=== PATIENT | male | born 2000 | race Two or more races ===

== ENCOUNTER 2024-10-24 06:54 | Emergency (ER) | payer BC ==
[~2024-10-24] VITALS: Ht 170.2 cm; Wt 44.9 kg
[2024-10-24 07:26] VITALS: BP 134/81; PULSE 119; RESP 18; TEMP 99.9; O2SAT 98
[2024-10-24] MEDS: methylPREDNISolone SOD SUCC 125 MG/2 ML VL IV ONE (07:30)
[2024-10-24] MEDS: KETOROLAC TROMETH 30 MG/ML 1ML VIAL IV ONE (07:30)
[2024-10-24] MEDS: cefTRIAXone 1GM/50ML D5W 50 ML IV ONE (07:30)
--- NOTE | 2024-10-24 07:32 | ED.PDOC ---
Eye-HPI HPI Comments A 24 YEAR OLD MALE PRESENTS TO THE ED WITH COMPLAINT OF SORE THROAT. PATIENT STATES HE HAS BEEN EXPERIENCING A SORE THROAT THAT IS WORSE WHEN SWALLOWING FOR THE PAST 2 DAYS. PATIENT DENIES FEVER, CHILLS, SHORTNESS OF BREATH, CHEST PAIN, ABDOMINAL PAIN, NAUSEA, VOMITING, HEADACHE, OR OTHER COMPLAINTS. NO OTHER SYMPTOMS OR MODIFYING FACTORS AT THIS TIME. PATIENT IS ALERT, ORIENTED X 4, AND HAS STEADY GAIT. Chief Complaint: Sore Throat Time Seen by MD: 07:26 Reviewed Notes: Nurses Notes, Medications, Allergies Allergies: Coded Allergies: NO KNOWN ALLERGIES (Unverified , 10/24/24) Home Meds Active Scripts Lidocaine HCl (Mouth-Throat) (Lidocaine HCl Viscous) 2 % Geri, 5 ML MT TID, #100 ML Prov:CHRISTIANNE GEORGE 10/24/24 Azithromycin (ZITHROMAX TABLET) 250 Mg Tb, 250 MG PO DAILY, #6 TAB Prov:CHRISTIANNE GEORGE 10/24/24 Information Source: Patient Mode of Arrival: Ambulatory Timing: Days Duration: Since onset, Days Prehospital treatment: None Quality: Pain, Red Lids: Normal Conjunctiva: Normal Cornea: Normal Pupils: Normal EOM: Normal Fundus: Normal Slit lamp exam: Normal Anterior chamber: Normal Mouth Location: Pharynx Mouth: Normal ENT Ear Exam: Normal, Normal, Normal Nose: Normal Sinuses: Normal Oropharynx: Tonsillar hypertrophy, Red, Exudate Onset: Spontaneous Throat Exposed to: None History of: None Last Tetanus: Unknown Modifying factors: Nothing Associated signs and symptoms: Sore Throat Past Medical History PAST MEDICAL HISTORY: Denies Surgical History: Denies all surgeries Family History Family History: Reviewed,noncontributory to illness Social History Smoker: Non-Smoker Alcohol: Denies ETOH Use Drugs: Denies Drug Use Lives In: Home Constitutional: denies: chills, diaphoresis, fatigue, fever, malaise, sweats, weakness, others EENTM: reports: throat pain, throat swelling; denies: blurred vision, double vision, ear bleeding, ear discharge, ear drainage, ear pain, ear ringing, eye pain, eye redness, hearing loss, mouth pain, mouth swelling, nasal discharge, nose bleeding, nose congestion, nose pain, photophobia, tearing, voice changes, others Respiratory: denies: cough, hemoptysis, orthopnea, SOB at rest, shortness of breath, SOB with excertion, stridor, wheezing, others Cardiovascular: denies: chest pain, dizzy spells, diaphoresis, Dyspnea on exertion, edema, irregular heart beat, left arm pain, lightheadedness, palpitations, PND, syncope, others Gastrointestinal: denies: abdomen distended, abdominal pain, blood streaked bowels, constipated, diarrhea, dysphagia, difficulty swallowing, hematemesis, melena, nausea, poor appetite, poor fluid intake, rectal bleeding, rectal pain, vomiting, others Genitourinary: denies: burning, dysuria, flank pain, frequency, hematuria, incontinence, penile discharge, penile sore, pain, testicle pain, testicle swelling, urgency, others Neurological: denies: dizziness, fainting, headache, left sided numbness, left sided weakness, numbness, paresthesia, pre-existing deficit, right sided nu mbness, right sided weakness, seizure, speech problems, tingling, tremors, weakness, others Musculoskeletal: denies: back pain, gout, joint pain, joint swelling, muscle pain, muscle stiffness, neck pain, others Integumetry: denies: bruises, change in color, change in hair/nails, dryness, laceration, lesions, lumps, rash, wounds, others Allergic/Immunocompromised: denies: Difficulty Healing, Frequent Infections, Hives, Itching, others Hematologic/Lymphatic: denies: anemia, blood clots, easy bleeding, easy bruising, swollen glands, others Endocrine: denies: excessive hunger, excessive sweating, excessive thirst, excessive urination, flushing, intolerance to cold, intolerance to heat, unexplained weight gain, unexplained weight loss, others Psychiatric: denies: anxiety, bipolar disorder, depression, hopeless, panic disorder, schizophrenia, sleepless, suicidal, others All Other Systems: Reviewed and Negative Physical Exam General Appearance: No Apparent Distress, Normal HEENT: PERRL/EOMI, Pharyngeal Erythema (TONSILLAR SWELLING WITH EXUDATES. ), TMs Normal, Tonsillar Exudate Neck: Full Range of Motion, Non-Tender, Normal, Normal Inspection Respiratory: Chest Non-Tender, Lungs Clear, No Accessory Muscle Use, No Respiratory Distress, Normal Breath Sounds Cardiovascular: No Edema, No JVD, No Murmur, No Gallop, Normal Peripheral Pulses, Regular Rate/Rhythm Breast Exam: Deferred Gastrointestinal: No Organomegaly, Non Tender, No Pulsatile Mass, Normal Bowel Sounds, Soft Genitalia: Deferred Pelvic: Deferred Rectal: Deferred Extremities: No calf tenderness, Normal capillary refill, Normal inspection, Normal range of motion, Non-tender, No pedal edema Musculoskeletal : Apperance: Normal Neurologic: Alert, wire photo operator news II-XII nml as Tested, No Motor Deficits, Normal Affect, Normal Mood, No Sensory Deficits Cerebellar Function: Normal Reflexes: Normal Skin: Dry, Normal Color, Warm Peripheral Pulses: 2+ carotid (R), 2+ carotid (L) Lymphatic: No Adenopathy Was a procedure done? Was a procedure done?: No EENT DIFF Eye: N/A Ear: Otitis Media, Pharyngitis, Sinusitis Nose: N/A Mouth: N/A Sore Throat: Pharyngitis, Streptococcal, Viral Pharyngitis, URI X-Ray, Labs, Meds, VS Vital Signs Date Time Temp Pulse Resp B/P (MAP) Pulse Ox O2 Delivery O2 Flow Rate FiO2 10/24/24 07:26 99.9 119 18 134/81 (98) 98 99.9 10/24/24 07:26 119 18 98 Room Air 10/24/24 07:05 99.9 119 18 134/81 (98) 98 Lab Test 10/24/24 07:27 Range/Units Group A Streptococcus Rapid Negative Current Medications Medications (Trade) Dose Ordered Sig/Humphrey Route Start Time Stop Time Status Last Admin Sodium Chloride 500 ml @ 500 mls/hr Q1H ONCE IV 10/24/24 08:15 10/24/24 09:14 10/24/24 08:16 X-Ray, Labs, Meds, VS Comment EXTERNAL NOTES: NONE LABS ORDERED: STREP A RAPID REVIEWED AND INTERPRETED RESULTS: NEGATIVE IMAGING ORDERED: NONE INDEPENDENT HISTORIANS: NONE TREATMENTS ORDERED: ROCEPHIN 1 G IV, SOLU-MEDROL 125 MG IV, TORADOL 30MG IVP AND 0.9 NS 500ML PATIENT'S CASE AND RESULTS HAVE BEEN DISCUSSED WITH THE ED ATTENDING PHYSICIAN AND THEY AGREE WITH MY PLAN OF CARE. I HAVE INSTRUCTED THEM TO FOLLOW UP WITH THEIR PCP IN 1-2 DAYS. THE PATIENT FULLY UNDERSTANDS AND IS AWARE THEY NEED TO FOLLOW UP WITH THEIR PCP FOR FURTHER EVALUATION IF THEIR SYMPTOMS PERSIST. Time of 1ST Reevaluation: 09:00 Reevaluation 1ST: Improved Patient Education/Counseling: Diagnosis, Treatment, Need For Follow Up Family Education/Counseling: Diagnosis, Treatment, Need For Follow Up Medical Screening: No EMC Exist At This Time Departure 1 Departure Time of Disposition: 09:00 Impression: Primary Impression: Exudative tonsillitis Disposition: HOME / SELF CARE / HOMELESS Condition: Stable Additional Instructions: FOLLOW-UP WITH PCP IN 1 TO 2 DAYS. TAKE MEDICATIONS PRESCRIBED. RETURN TO ED FOR ANY NEW OR WORSENING SYMPTOMS. e-Prescriptions Lidocaine HCl (Mouth-Throat) (Lidocaine HCl Viscous) 2 % Geri 5 ML MT TID, #100 ML Prov: CHRISTIANNE GEORGE 10/24/24 Azithromycin (ZITHROMAX TABLET) 250 Mg Tb 250 MG PO DAILY, #6 TAB Prov: CHRISTIANNE GEORGE 10/24/24 Discharged With: Self Critical Care Note Critical Care Time?: No Stability Stability form required: No I personally scribed for CHRISTIANNE GEORGE ([email or web address]) on 10/24/24 at 07:32. Electronically submitted by Emanuel Schreiber ([email or web address]). I personally scribed for CHRISTIANNE GEORGE ([email or web address]) on 10/24/24 at 08:21. Electronically submitted by Emaunel Schreiber ([email or web address]). CHRISTIANNE GEORGE Oct 24, 2024 07:32
[2024-10-24] MEDS: SODIUM CHLORIDE 0.9% 500 ML IV ONE (08:16)
[2024-10-24 08:17] LABS: Rapid Strep A Screen-Throat Negative
[2024-10-24] MEDS ORDERED: LIDO2SOL26 MT (08:24)
[2024-10-24] MEDS ORDERED: AZIT-185 PO (08:24)
== END 2024-10-24 08:42 | disposition home or self-care (01) ==
LOC: ER 06:54
DX: J03.90 Acute tonsillitis, unspecified (principal); Z79.899 Other long term (current) drug therapy
CPT/HCPCS: 87070; 87880; 99283; J0696; J1885; J2919

== ENCOUNTER 2024-12-10 14:31 | Emergency (ER) | payer BC ==
[~2024-12-10] VITALS: Ht 170.2 cm; Wt 46.5 kg
[~2024-12-10 14:31] MED LIST: AZIT-185 PO; LIDO2SOL26 MT
[2024-12-10] MEDS: ONDANSETRON ODT 4 MG TAB PO ONE (15:15)
--- NOTE | 2024-12-10 15:16 | ED.PDOC ---
GI ASSESSMENT HPI Comments 24y M who presents to the ED for chief complaint of nausea and vomiting. Pt states he has been having nausea and vomiting with diarrhea for the past 2 days. Pt states he has been having multiple vomiting episodes since and states he has not been able to keep anything and came to the ED for further evaluation. Pt states he ate some noodles and since been having symptoms. Pt states he has had these symptoms in the past and states prior he was dx with stomach bug. Pt otherwise denies any other symptoms at this time. Chief Complaint: Nausea/Vomiting Time Seen by MD: 15:15 Primary Care Provider: NONE Reviewed Notes: Nurses Notes, Medications, Allergies Allergies: Coded Allergies: NO KNOWN ALLERGIES (Unverified , 10/24/24) Home Meds Active Scripts Ondansetron Odt 4MG Tab (ZOFRAN PO) 4 Mg Tb, 4 MG PO Q8HP PRN for 5 Days, #15 TAB ODT TAB-DISSOLVE IN MOUTH, THEN SWALLOW Prov:RADHA ALVARADO MD 12/10/24 Lidocaine HCl (Mouth-Throat) (Lidocaine HCl Viscous) 2 % Geri, 5 ML MT TID, #100 ML Prov:CHRISTIANNE GEORGE 10/24/24 Azithromycin (ZITHROMAX TABLET) 250 Mg Tb, 250 MG PO DAILY, #6 TAB Prov:CHRISTIANNE GEORGE 10/24/24 Information Source: Patient Mode of Arrival: Ambulatory Brought in by: self Timing: Days Duration: Since onset Prehospital treatment: None Quality: Aching Vomitus: Food Particles, Soft Stool: Gross Severity: Moderate Recent: Possible spoiled food Recent Hx of: None Modifying Factors: Food Associated sign and symptoms: Nausea, Vomiting, Diarrhea, Abdominal Pain Past Medical History PAST MEDICAL HISTORY: Denies Surgical History: Denies all surgeries Family History Family History: Reviewed,noncontributory to illness Social History Smoker: Non-Smoker Alcohol: Denies ETOH Use Drugs: Denies Drug Use Lives In: Home Constitutional: denies: chills, diaphoresis, fatigue, fever, malaise, sweats, weakness, others EENTM: denies: blurred vision, double vision, ear bleeding, ear discharge, ear drainage, ear pain, ear ringing, eye pain, eye redness, hearing loss, mouth pain, mouth swelling, nasal discharge, nose bleeding, nose congestion, nose pain, photophobia, tearing, throat pain, throat swelling, voice changes, others Respiratory: denies: cough, hemoptysis, orthopnea, SOB at rest, shortness of breath, SOB with excertion, stridor, wheezing, others Cardiovascular: denies: chest pain, dizzy spells, diaphoresis, Dyspnea on exertion, edema, irregular heart beat, left arm pain, lightheadedness, palpitations, PND, syncope, others Gastrointestinal: reports: diarrhea, vomiting; denies: abdomen distended, abdominal pain, blood streaked bowels, constipated, dysphagia, difficulty swallowing, hematemesis, melena, nausea, poor appetite, poor fluid intake, rectal bleeding, rectal pain, others Genitourinary: denies: burning, dysuria, flank pain, frequency, hematuria, incontinence, penile discharge, penile sore, pain, testicle pain, testicle swelling, urgency, others Neurological: denies: dizziness, fainting, headache, left sided numbness, left sided weakness, numbness, paresthesia, pre-existing deficit, right sided numbnes s, right sided weakness, seizure, speech problems, tingling, tremors, weakness, others Musculoskeletal: denies: back pain, gout, joint pain, joint swelling, muscle pain, muscle stiffness, neck pain, others Integumetry: denies: bruises, change in color, change in hair/nails, dryness, laceration, lesions, lumps, rash, wounds, others Allergic/Immunocompromised: denies: Difficulty Healing, Frequent Infections, Hives, Itching, others Hematologic/Lymphatic: denies: anemia, blood clots, easy bleeding, easy bruising, swollen glands, others Endocrine: denies: excessive hunger, excessive sweating, excessive thirst, excessive urination, flushing, intolerance to cold, intolerance to heat, unexplained weight gain, unexplained weight loss, others Psychiatric: denies: anxiety, bipolar disorder, depression, hopeless, panic disorder, schizophrenia, sleepless, suicidal, others All Other Systems: Reviewed and Negative Physical Exam General Appearance: No Apparent Distress, Thin HEENT: Normal ENT Inspection, Pharynx Normal, TMs Normal Neck: Full Range of Motion, Non-Tender, Normal, Normal Inspection Respiratory: Chest Non-Tender, Lungs Clear, No Accessory Muscle Use, No Respiratory Distress, Normal Breath Sounds Cardiovascular: No Edema, No JVD, No Murmur, No Gallop, Normal Peripheral Pulses, Regular Rate/Rhythm Breast Exam: Deferred Gastrointestinal: No Organomegaly, Non Tender, No Pulsatile Mass, Normal Bowel Sounds, Soft Genitalia: Deferred Pelvic: Deferred Rectal: Deferred Extremities: No calf tenderness, Normal capillary refill, Normal inspection, Normal range of motion, Non-tender, No pedal edema Musculoskeletal : Apperance: Normal Neurologic: Alert, rn transplant II-XII nml as Tested, No Motor Deficits, Normal Affect, Normal Mood, No Sensory Deficits Cerebellar Function: Normal Reflexes: Normal Skin: Dry, Normal Color, Warm Lymphatic: No Adenopathy Was a procedure done? Was a procedure done?: No GI differential Dx Differential Diagnosis: Gastritis/PUD, Gastroenteritis, Dehydration, Electrolyte Imbalance, Food Poisoning, Bacterial, Viral X-Ray, Labs, Meds, VS Vital Signs Date Time Temp Pulse Resp B/P (MAP) Pulse Ox O2 Delivery O2 Flow Rate FiO2 12/10/24 14:43 98.3 81 16 121/69 (86) 98 The patient was given Zofran The patient was being discharged with a diagnosis of gastroenteritis The patient will follow up with the primary care doctor The patient will return to the emergency department's the condition worsens Time of 1ST Reevaluation: 15:45 Reevaluation 1ST: Unchanged Patient Education/Counseling: Diagnosis, Treatment, Prognosis, Need For Follow Up Family Education/Counseling: No Family Present Departure 1 Departure Time of Disposition: 16:15 Impression: Primary Impression: Acute gastroenteritis Disposition: 01 HOME / SELF CARE / HOMELESS Condition: Fair e-Prescriptions Ondansetron Odt 4MG Tab (ZOFRAN PO) 4 Mg Tb 4 MG PO Q8HP PRN for 5 Days, #15 TAB ODT TAB-DISSOLVE IN MOUTH, THEN SWALLOW Prov: RADHA ALVARADO MD 12/10/24 Discharged With: Self Critical Care Note Critical Care Time?: No Stability Stability form required: No Heart Score Heart Score: Heart Score Response (Comments) Value History N/A 0 EKG N/A 0 Age N/A 0 Risk Factors N/A 0 Troponin N/A 0 Total 0 I personally scribed for RADHA ALVARADO MD ([email or web address]) on 12/10/24 at 15:16. Electronically submitted by Paulino RASHID). ARDHA ALVARADO MD Dec 10, 2024 15:16
[2024-12-10] MEDS ORDERED: ZOFR4T PO (16:14)
[2024-12-10 16:36] VITALS: BP 120/82; PULSE 75; RESP 18; O2SAT 98
== END 2024-12-10 16:42 | disposition home or self-care (01) ==
LOC: ER 14:37
DX: K52.9 Noninfective gastroenteritis and colitis, unspecified (principal); Z79.899 Other long term (current) drug therapy
CPT/HCPCS: 99283; Q0162

== ENCOUNTER 2025-06-27 07:24 | Inpatient (IN) | payer BC ==
[~2025-06-27] VITALS: Ht 170.2 cm; Wt 45.8 kg
[~2025-06-27 07:24] MED LIST changes: +ZOFR4T PO
--- NOTE | 2025-06-27 07:43 | ED.PDOC ---
GI ASSESSMENT HPI Comments 25 y/o M, presents to the ED for CC of nausea/vomiting. Patient states, he has been experiencing nausea/vomiting onset, 0200 this morning (06/27/25). Patient reports, using marijuana x2days ago and is unsure if symptoms maybe related. Patient denies diarrhea, fever, chills, sweats, or fatigue. No other symptoms or modifying factors present at this time. Chief Complaint: Nausea/Vomiting Time Seen by MD: 07:38 Primary Care Provider: NONE Reviewed Notes: Nurses Notes, Medications, Allergies Allergies: Coded Allergies: NO KNOWN ALLERGIES (Unverified , 10/24/24) Home Meds Active Scripts Ondansetron Odt 4MG Tab (ZOFRAN PO) 4 Mg Tb, 4 MG PO Q8HP PRN for 5 Days, #15 TAB ODT TAB-DISSOLVE IN MOUTH, THEN SWALLOW Prov:RADHA ALVARADO MD 12/10/24 Lidocaine HCl (Mouth-Throat) (Lidocaine HCl Viscous) 2 % Geri, 5 ML MT TID, #100 ML Prov:CHRISTIANNE GEORGE 10/24/24 Azithromycin (ZITHROMAX TABLET) 250 Mg Tb, 250 MG PO DAILY, #6 TAB Prov:CHRISTIANNE GEORGE 10/24/24 Information Source: Patient Mode of Arrival: Ambulatory Timing: Hours Duration: Since onset Prehospital treatment: None Quality: None Vomitus: Watery Stool: Normal Severity: Moderate Recent: None Recent Hx of: None Pain Location: None Modifying Factors: Nothing Associated sign and symptoms: Nausea, Vomiting Past Medical History PAST MEDICAL HISTORY: Denies Surgical History: Denies all surgeries Family History Family History: Reviewed,noncontributory to illness Social History Smoker: Non-Smoker Alcohol: Denies ETOH Use Drugs: Denies Drug Use Lives In: Home Constitutional: denies: chills, diaphoresis, fatigue, fever, malaise, sweats, weakness, others EENTM: denies: blurred vision, double vision, ear bleeding, ear discharge, ear drainage, ear pain, ear ringing, eye pain, eye redness, hearing loss, mouth pain, mouth swelling, nasal discharge, nose bleeding, nose congestion, nose pain, photophobia, tearing, throat pain, throat swelling, voice changes, others Respiratory: denies: cough, hemoptysis, orthopnea, SOB at rest, shortness of breath, SOB with excertion, stridor, wheezing, others Cardiovascular: denies: chest pain, dizzy spells, diaphoresis, Dyspnea on exer tion, edema, irregular heart beat, left arm pain, lightheadedness, palpitations, PND, syncope, others Gastrointestinal: reports: nausea, vomiting; denies: abdomen distended, abdominal pain, blood streaked bowels, constipated, diarrhea, dysphagia, difficulty swallowing, hematemesis, melena, poor appetite, poor fluid intake, rectal bleeding, rectal pain, others Genitourinary: denies: burning, dysuria, flank pain, frequency, hematuria, incontinence, penile discharge, penile sore, pain, testicle pain, testicle swelling, urgency, others Neurological: denies: dizziness, fainting, headache, left sided numbness, left sided weakness, numbness, paresthesia, pre-existing deficit, right sided numbness, right sided weakness, seizure, speech problems, tingling, tremors, weakness, others Musculoskeletal: denies: back pain, gout, joint pain, joint swelling, muscle pain, muscle stiffness, neck pain, others Integumetry: denies: bruises, change in color, change in hair/nails, dryness, laceration, lesions, lumps, rash, wounds, others Allergic/Immunocompromised: denies: Difficulty Healing, Frequent Infections, Hives, Itching, others Hematologic/Lymphatic: denies: anemia, blood clots, easy bleeding, easy bruising, swollen glands, others Endocrine: denies: excessive hunger, excessive sweating, excessive thirst, excessive urination, flushing, intolerance to cold, intolerance to heat, unexplained weight gain, unexplained weight loss, others Psychiatric: denies: anxiety, bipolar disorder, depression, hopeless, panic disorder, schizophrenia, sleepless, suicidal, others All Other Systems: Reviewed and Negative Physical Exam General Appearance: Moderate Distress, Thin HEENT: Normal ENT Inspection, Pharynx Normal, TMs Normal Neck: Full Range of Motion, Non-Tender, Normal, Normal Inspection Respiratory: Chest Non-Tender, Lungs Clear, No Accessory Muscle Use, No Respiratory Distress, Normal Breath Sounds Cardiovascular: No Edema, No JVD, No Murmur, No Gallop, Normal Peripheral Pulses, Regular Rate/Rhythm Breast Exam: Deferred Gastrointestinal: No Organomegaly, Non Tender, No Pulsatile Mass, Normal Bowel Sounds, Soft Genitalia: Deferred Pelvic: Deferred Rectal: Deferred Extremities: No calf tenderness, Normal capillary refill, Normal inspection, Normal range of motion, Non-tender, No pedal edema Musculoskeletal : Apperance: Normal Neurologic: Alert, antique collector II-XII nml as Tested, No Motor Deficits, Normal Affect, Normal Mood, No Sensory Deficits Cerebellar Function: Normal Reflexes: Normal Skin: Dry, Normal Color, Warm Peripheral Pulses: 3+ Radial (R), 3+ Radial (L) Lymphatic: No Adenopathy Was a procedure done? Was a procedure done?: No GI differential Dx Differential Diagnosis: Constipation, Diverticular disease, Esophagitis, Gastritis/PUD, Gastroenteritis, Drug toxicity, Electrolyte Imbalance, Food Poisoning, Bacterial, Viral X-Ray, Labs, Meds, VS Vital Signs Date Time Temp Pulse Resp B/P (MAP) Pulse Ox O2 Delivery O2 Flow Rate FiO2 06/27/25 07:26 97.3 96 18 129/90 98 97.3 Lab Test 06/27/25 08:48 06/27/25 08:40 06/27/25 07:52 06/27/25 02:40 Range/Units Blood Gas Specimen Type Arterial Blood Gas Sample Site Right radial Blood Gas Patient Temperature 37.0 Arterial Blood Date Drawn [id number] Arterial Blood pH 7.183 *L 7.350-7.450 Arterial Blood Partial Pressure CO2 24.7 L 35.0-48.0 mmHg Arterial Blood Partial Pressure O2 91.5 83.0-108.0 mmHg Arterial Blood HCO3 9.1 L 21.0-28.0 mmol/L Arterial Blood Oxygen Saturation 95.2 94.0-98.0 % Arterial Blood Base Excess -17.3 L -2.0-3.0 mmol/L Arterial Blood Oxyhemoglobin 94.4 94.0-98.0 % Arterial Blood Carboxyhemoglobin 0.1 L 0.5-1.5 % Arterial Blood Methemoglobin 0.7 0.0-1.5 % Mike Test Yes Blood Gas Total Hemoglobin 17.20 13.5-17.5 g/dL Blood Gas Modality Room air FiO2 % 21.0 Blood Gas Critical Value Read Back yes Blood Gas Notified Whom Blood Gas Notified Time [id number] Blood Gas Notified By electronic warfare specialist r.presley Lactic Acid Level 10.4 *H 0.4-2.0 mmol/L Beta-Hydroxybutyric Acid 1.776 H < 0.4 mmol/L Plasma/Serum Blood Alcohol 5.9 7.8 <10 mg/dL White Blood Count 34.8 *H 4.4-10.8 10^3/uL Red Blood Count 5.43 4.5-5.90 10^6/uL Hemoglobin 16.5 13.5-17.5 g/dL Hematocrit 50.6 41.0-53.0 % Mean Corpuscular Volume 93.3 80.0-100.0 fL Mean Corpuscular Hemoglobin 30.4 28.0-32.0 pg Mean Corpuscular Hemoglobin Concent 32.6 32.0-36.0 g/dL Red Cell Distribution Width 13.4 11.8-14.3 % Platelet Count 365 140-450 10^3/uL Mean Platelet Volume 9.0 6.9-10.8 fL Neutrophils (%) (Auto) 37.0-80.0 % Lymphocytes (%) (Auto) 10.0-50.0 % Monocytes (%) (Auto) 0.0-12.0 % Basophils (%) (Auto) 0.0-2.0 % Neutrophils # (Auto) 1.6-8.6 10 ^3/uL Lymphocytes # (Auto) 0.4-5.4 10 ^3/uL Monocytes # (Auto) 0-1.3 10 ^3/uL Differential Total Cells Counted 100.0 100 Neutrophils % (Manual) 87 H 37.0-80.0 Band Neutrophils % (Manual) 0 Lymphocytes % (Manual) 9 L 10.0-50.0 Monocytes % (Manual) 4 0-12 Eosinophils % (Manual) 0 0-7 Basophils % (Manual) 0 0.0-2.0 Metamyelocytes % (manual) 0 Myelocytes % (Manual) 0 Promyelocytes % (Manual) 0 Blast Cells % (Manual) 0 Reactive Lymphocytes 0 Platelet Estimate Adequate Red Blood Cell Morphology Normal Sodium Level 142 136-145 mmol/L Potassium Level 4.4 3.5-5.1 mmol/L Chloride Level 109 H 98-107 mmol/L Carbon Dioxide Level < 10 *L 20-31 mmol/L Anion Gap 23.59630 H 5-15 Blood Urea Nitrogen 11 9-23 mg/dL Creatinine 1.21 0.700-1.30 mg/dL Glomerular Filtration Rate Calc 86 >90 mL/min BUN/Creatinine Ratio 9.1 L 10.0-20.0 Serum Glucose 45 *L 74-106 mg/dL Calcium Level 10.1 8.7-10.4 mg/dL Current Medications Medications (Trade) Dose Ordered Sig/Humphrey Route Start Time Stop Time Status Last Admin Sodium Chloride 1,000 ml @ 1,000 mls/hr Q1H ONCE IV 06/27/25 07:45 06/27/25 08:44 DC 06/27/25 09:34 Ceftriaxone Sodium 50 ml @ 100 mls/hr ONCE ONCE IV 06/27/25 08:30 06/27/25 08:59 DC 06/27/25 09:18 Metronidazole 100 ml @ 100 mls/hr ONCE ONCE IV 06/27/25 08:30 06/27/25 09:29 DC 06/27/25 09:34 Sodium Chloride 1,000 ml @ 1,000 mls/hr Q1H ONCE IV 06/27/25 08:30 06/27/25 09:29 DC 06/27/25 09:05 Sodium Chloride 1,000 ml @ 150 mls/hr Q6H40M ONCE IV 06/27/25 08:30 06/27/25 15:09 06/27/25 10:40 Dextrose 50 ml ONCE ONCE IV 06/27/25 08:45 06/27/25 08:46 DC 06/27/25 08:45 Patient alert. Came in because of nausea vomiting. Uses marijuana. Vitals stable. Answering questions. Ambulating. Establish intravenous access. Was given fluids. Was given Zofran. Counseled patient effects of using drugs for 15 minutes. WBC elevated. Possible sepsis. Was given Rocephin. Was given Flagyl. Explained to the patient. [address] [address] Ph: [phone] DIAGNOSTIC IMAGING Diagnostic Imaging Report : [id number] Signed PATIENT: ALIYAH DE ANDA ACCT: [id number] UNIT: [id number] : 2000 LOC: OVERFLOW ROOM / BED: [address] [place] [address] / AGE / SEX: 25 / M ADM STATUS: ADM IN SERVICE 8 ORDERING PHYSICIAN: CALEB SIERRA MD PROCEDURE(s): ABPL - CT AB PEL WO CON-NO ORAL OR IV REASON: appy ORDER NUMBER(s): [id number], ACCESSION NUMBER(s): [id number] CT CT AB PEL WO CON-NO ORAL OR IV INDICATION: appy EXAM DATE: 06/27/2025 08:48 AM COMPARISON: None RADIATION DOSE: CTDIvol: 4.99 mGy, DLP: 268.84 mGy*cm PROCEDURE: Helical CT images were obtained of the abdomen and pelvis without IV contrast Sagittal and coronal reconstructions are provided. ORAL CONTRAST: None. ADDITIONAL IMAGES / REFORMATS: None All CT scans at this medical facility are performed using dose modulation techniques as appropriate to a performed exam including the following: Automated exposure control was utilized; adjustment of the MA and/or KV according to patient size; and use of iterative reconstruction technique. FINDINGS: LUNG BASE: Normal. LIVER: Normal. GALLBLADDER AND BILIARY TREE: No calcified gallstones. Normal caliber wall. No intra- or extrahepatic biliary ductal dilation. PANCREAS: Normal. SPLEEN: Normal. BOWEL: Normal. Appendix is only partially visualized but appears normal. ADRENALS: Normal. KIDNEYS AND URETER: Normal. BLADDER: Normal. REPRODUCTIVE ORGANS: Normal. LYMPH NODES:No lymphadenopathy. PERITONEUM: No ascites or free air. No other fluid collection. VESSELS: Normal. RETROPERITONEUM: Normal. ABDOMINAL WALL: Normal. BONES: Normal. IMPRESSION: No acute intraabdominal abnormality. Appendix is only partially visualized but appears normal. ATED BY: JERONIMO CASTILLO MD DICTATED DATE/TIME: 06/27/251000 SIGNED BY: JERONIMO CASTILLO MD SIGNED DATE/TIME: 06/27/251000 CC: Time of 1ST Reevaluation: 08:12 Reevaluation 1ST: Unchanged Patient Education/Counseling: Diagnosis, Treatment Family Education/Counseling: No Family Present SEPSIS Sepsis Screen Date sepsis recognized/suspect: Jun 27, 2025 Time Sepsis recognized/suspect: 727 Recent Procedure: No On Antibiotic Therapy: No Respiratory Rate >20: No Heart Rate >90: Yes Temp<36 C (96.8 F) or >38.3 C: No SBP <90 or MAP <65 mmHG: No New Acute Mental Status Change: No Is the patient on CPAP, BIPAP,: No Physician Orders Drug Screen (06/27/25 07:48) Blood Culture (06/27/25 08:26) Sodium Chloride 0.9% (06/27/25 08:30) Ct Ab Pel Wo Con-No Oral Or Iv (06/27/25 08:29) Abg W/ Co-Ox (06/27/25 08:35) Vital Signs Date Time Temp Pulse Resp B/P (MAP) Pulse Ox O2 Delivery O2 Flow Rate FiO2 06/27/25 07:26 97.3 96 18 129/90 98 97.3 Laboratory Tests Test 06/27/25 07:52 06/27/25 08:40 White Blood Count 34.8 10^3/uL (4.4-10.8) *H Lactic Acid Level 10.4 mmol/L (0.4-2.0) *H Medications Medications Dose Ordered Sig/Humphrey Route Start Time Stop Time Status Last Admin Dose Admin Ceftriaxone Sodium 50 ml @ 100 mls/hr ONCE ONCE IV 06/27/25 08:30 06/27/25 08:59 DC 06/27/25 09:18 Dextrose 50 ml ONCE ONCE IV 06/27/25 08:45 06/27/25 08:46 DC 06/27/25 08:45 Metronidazole 100 ml @ 100 mls/hr ONCE ONCE IV 06/27/25 08:30 06/27/25 09:29 DC 06/27/25 09:34 Sodium Chloride 1,000 ml @ 150 mls/hr Q6H40M ONCE IV 06/27/25 08:30 06/27/25 15:09 06/27/25 10:40 Sodium Chloride 1,000 ml @ 1,000 mls/hr Q1H ONCE IV 06/27/25 07:45 06/27/25 08:44 DC 06/27/25 09:34 Sodium Chloride 1,000 ml @ 1,000 mls/hr Q1H ONCE IV 06/27/25 08:30 06/27/25 09:29 DC 06/27/25 09:05 Departure 1 Departure Time of Disposition: 07:48 Impression: Primary Impression: Sepsis, unspecified organism Qualified Codes: A41.9 - Sepsis, unspecified organism Additional Impressions: Acute gastroenteritis Cannabis-induced disorder Disposition: ADMITTED INPATIENT Admit to: Med Surg Condition: Guarded Critical Care Note Critical Care Time?: No Stability Stability form required: No Heart Score Heart Score: Heart Score Response (Comments) Value History N/A 0 EKG N/A 0 Age N/A 0 Risk Factors N/A 0 Troponin N/A 0 Total 0 I personally scribed for CALEB SIERRA MD ([email or web address]) on 06/27/25 at 07:43. Electronically submitted by Ciera Schaeffer ([email or web address]). I personally scribed for CALEB SIERRA MD ([email or web address]) on 06/27/25 at 11:26. Electronically submitted by Ciera Schaeffer ([email or web address]). CALEB SIERRA MD Jun 27, 2025 07:43
[2025-06-27 08:22] LABS: Hematocrit 50.6 % (41.0-53.0); Hemoglobin 16.5 g/dL (13.5-17.5); Mean Corpuscular Hemoglobin 30.4 pg (28.0-32.0); Mean Corpuscular Volume 93.3 fL (80.0-100.0)
[2025-06-27 08:25] LABS: Potassium 4.4 mmol/L (3.5-5.1); Sodium 142 mmol/L (136-145)
[2025-06-27 08:26] LABS: Anion Gap 23.00001 (5-15)
[2025-06-27 08:27] LABS: Calcium 10.1 mg/dL (8.7-10.4)
[2025-06-27 08:32] LABS: BUN/Creatinine Ratio 9.1 (10.0-20.0); Blood Urea Nitrogen 11 mg/dL (9-23)
[2025-06-27 08:33] LABS: Chloride 109 mmol/L (98-107)
[2025-06-27 08:34] LABS: Carbon Dioxide < 10 mmol/L (20-31); Glucose 45 mg/dL (74-106)
[2025-06-27] MEDS: DEXTROSE 50% SYRINGE 50 ML IV ONE (08:44)
[2025-06-27 08:45] VITALS: PULSE 95; RESP 16; O2SAT 99
[2025-06-27 08:45] LABS: Total Cells Counted 100.0 (100)
[2025-06-27] MEDS: DEXTROSE (50%) 50ML SYRG IV ONE (08:45)
[2025-06-27] MEDS ORDERED: DEXTROSE 10% 1,000 ML IV SCH (08:45)
[2025-06-27 08:46] LABS: RBC Morphology Normal
[2025-06-27 08:53] LABS: Base Excess -17.3 mmol/L (-2.0-3.0)
[2025-06-27] MEDS ORDERED: IPRATROPIUM BROM 0.5 MG/2.5ML INH SOL ONE (09:00)
[2025-06-27] MEDS ORDERED: LEVALBUTEROL HCL 1.25 MG/3 ML NEB ONE (09:00)
[2025-06-27] MEDS: SODIUM CHLORIDE 0.9% 1,000 ML IV ONE ×3 (09:05→10:40)
[2025-06-27] MEDS ORDERED: D5W/ SOD CHL 0.9%/KCL 20MEQ 1,000 ML IV SCH (09:15)
[2025-06-27] MEDS ORDERED: MORPHINE SULFATE INJ 2 MG/ml SYRG IV PRN (09:15)
[2025-06-27] MEDS ORDERED: NITROGLYCERIN 0.4 MG SL TAB SL PRN (09:15)
[2025-06-27] MEDS ORDERED: DOCUSATE SOD 100 MG CAP PO PRN (09:15)
[2025-06-27] MEDS ORDERED: DEXTROSE (50%) 50ML SYRG IV PRN (09:15)
--- NOTE | 2025-06-27 09:17 | DVHHP2 ---
History of Present Illness Reason for Visit: weakness n/v/d History of Present Illness 25-year-old male with a history of asthma and no prior surgeries presented with persistent vomiting and diarrhea following heavy alcohol consumption. He reports that he was out partying yesterday, drinking tequila until approximately 1:00 AM. This morning, upon awakening, he experienced intractable vomiting without blood and was unable to tolerate oral intake despite attempts with Gatorade and Powerade. He also reports diffuse abdominal pain and diarrhea. He denies hematemesis, hematochezia, melena, chest pain, or shortness of breath. He smoked marijuana two days prior to presentation. On arrival to the ED, vital signs showed tachycardia and metabolic derangements. Labs revealed WBC 34.8, chloride 109, CO? <10, anion gap 23, glucose decreased to 45, lactate elevated at 10.48, pH 7.183, bicarbonate 9.1, base deficit -17.3, hemoglobin 20.1, ethanol level 7.8. Renal function was normal. Findings are consistent with severe metabolic acidosis, lactic acidosis, leukocytosis, hypoglycemia, and possible sepsis. The patient received initial resuscitation in the ED. Given the severity of metabolic derangements and concern for sepsis, he will be admitted to [facility] for further workup and management. Past Medical History See HPI above Past Surgical History See HPI above Family History Reviewed, non-contributory to the management of this case. Past Social History Patient does drink last drink was this morning at 1:00 a.m. he was binge drinking he also smokes marijuana he stated last smoke was two days ago Review of Systems Constitutional: No: Fever, Chills, Sweats, Weakness, Malaise, Other Eyes: No: Pain, Vision change, Conjunctivae inflammation, Eyelid inflammation, Other, Redness ENT: No: Ear pain, Ear discharge, Nose pain, Nose discharge, Nose congestion, Mouth pain, Mouth swelling, Throat pain, Throat swelling, Other Respiratory: No: Cough, Dry, Shortness of breath, SOB with excertion, Wheezing, Hemoptysis, Pleuritic Pain, Sputum, Wheezing, Other Cardiovascular: No: Chest Pain, Palpitations, Orthopnea, Paroxysmal Noc. Dyspnea, Edema, Lt Headedness, Other Gastrointestinal: Nausea, Vomiting, Abdominal Pain, Diarrhea Genitourinary: No Dysuria, No Frequency, No Incontinence, No Hematuria, No Retention, No Other Musculoskeletal: No: other, neck pain, shoulder pain, arm pain, back pain, hand pain, leg pain, foot pain Skin: No: Rash, Lesions, Jaundice, Bruising, Other Neurological: Weakness; No: Numbness, Incoordination, Change in speech, Confusion, Seizures, Other Allergies: Coded Allergies: NO KNOWN ALLERGIES (Unverified , 10/24/24) Medications Current Medications Medications Dose Ordered Sig/Humphrey Route Start Time Stop Time Status Last Admin Dose Admin Dextrose 1,000 ml @ 100 mls/hr Q10H IV 06/27/25 08:45 Exam Vital Signs Vital Signs Date Time Temp Pulse Resp B/P (MAP) Pulse Ox O2 Delivery O2 Flow Rate FiO2 06/27/25 07:26 97.3 96 18 129/90 98 97.3 General Appearance: Alert, Oriented X3, Cooperative, No acute distress HEENT: Atraumatic, PERRLA, EOMI, Mucous membr. moist/pink Respiratory: Clear to auscultation, Normal air movement Cardiovascular: Regular rate, Normal S1, Normal S2, No murmurs Abdominal: Normal bowel sounds, Soft, No tenderness, No hepatospenomegaly, No masses Extremities: No clubbing, No cyanosis, No edema, Normal pulses, No tendern ess/swelling Skin: No rashes, No breakdown, No significant lesion Neuro: Normal gait, Normal speech, Strength at 5/5 X4 ext, Normal tone, Sensation intact, Cranial nerves 3-12 NL Psych/Mental Status: Mental status NL, Mood NL Labs/Xrays CT scan of the abdomen pelvis unremarkable I reviewed labs, imaging CT scan abdomen pelvis, EKG and all diagnostic studies on this patient from ED records and the medical chart Labs Test 06/27/25 08:48 06/27/25 08:40 06/27/25 07:52 Range/Units Blood Gas Specimen Type Arterial Blood Gas Sample Site Right radial Blood Gas Patient Temperature 37.0 Arterial Blood Date Drawn [id number] Arterial Blood pH 7.183 *L 7.350-7.450 Arterial Blood Partial Pressure CO2 24.7 L 35.0-48.0 mmHg Arterial Blood Partial Pressure O2 91.5 83.0-108.0 mmHg Arterial Blood HCO3 9.1 L 21.0-28.0 mmol/L Arterial Blood Oxygen Saturation 95.2 94.0-98.0 % Arterial Blood Base Excess -17.3 L -2.0-3.0 mmol/L Arterial Blood Oxyhemoglobin 94.4 94.0-98.0 % Arterial Blood Carboxyhemoglobin 0.1 L 0.5-1.5 % Arterial Blood Methemoglobin 0.7 0.0-1.5 % Mike Test Yes Blood Gas Total Hemoglobin 17.20 13.5-17.5 g/dL Blood Gas Modality Room air FiO2 % 21.0 Blood Gas Critical Value Read Back yes Blood Gas Notified Whom Blood Gas Notified Time [id number] Blood Gas Notified By principal architect ulises White Blood Count 34.8 *H 4.4-10.8 10^3/uL Red Blood Count 5.43 4.5-5.90 10^6/uL Hemoglobin 16.5 13.5-17.5 g/dL Hematocrit 50.6 41.0-53.0 % Mean Corpuscular Volume 93.3 80.0-100.0 fL Mean Corpuscular Hemoglobin 30.4 28.0-32.0 pg Mean Corpuscular Hemoglobin Concent 32.6 32.0-36.0 g/dL Red Cell Distribution Width 13.4 11.8-14.3 % Platelet Count 365 140-450 10^3/uL Mean Platelet Volume 9.0 6.9-10.8 fL Neutrophils (%) (Auto) 37.0-80.0 % Lymphocytes (%) (Auto) 10.0-50.0 % Monocytes (%) (Auto) 0.0-12.0 % Basophils (%) (Auto) 0.0-2.0 % Neutrophils # (Auto) 1.6-8.6 10 ^3/uL Lymphocytes # (Auto) 0.4-5.4 10 ^3/uL Monocytes # (Auto) 0-1.3 10 ^3/uL Differential Total Cells Counted 100.0 100 Neutrophils % (Manual) 87 H 37.0-80.0 Band Neutrophils % (Manual) 0 Lymphocytes % (Manual) 9 L 10.0-50.0 Monocytes % (Manual) 4 0-12 Eosinophils % (Manual) 0 0-7 Basophils % (Manual) 0 0.0-2.0 Metamyelocytes % (manual) 0 Myelocytes % (Manual) 0 Promyelocytes % (Manual) 0 Blast Cells % (Manual) 0 Reactive Lymphocytes 0 Platelet Estimate Adequate Red Blood Cell Morphology Normal Sodium Level 142 136-145 mmol/L Potassium Level 4.4 3.5-5.1 mmol/L Chloride Level 109 H 98-107 mmol/L Carbon Dioxide Level < 10 *L 20-31 mmol/L Anion Gap 23.27341 H 5-15 Blood Urea Nitrogen 11 9-23 mg/dL Creatinine 1.21 0.700-1.30 mg/dL Glomerular Filtration Rate Calc 86 >90 mL/min BUN/Creatinine Ratio 9.1 L 10.0-20.0 Serum Glucose 45 *L 74-106 mg/dL Calcium Level 10.1 8.7-10.4 mg/dL SEPSIS Sepsis Screen Date sepsis recognized/suspect: Jun 27, 2025 Time Sepsis recognized/suspect: 727 Recent Procedure: No On Antibiotic Therapy: No Respiratory Rate >20: No Heart Rate >90: Yes Temp<36 C (96.8 F) or >38.3 C: No SBP <90 or MAP <65 mmHG: No New Acute Mental Status Change: No Is the patient on CPAP, BIPAP,: No Physician Orders Drug Screen (06/27/25 07:48) Blood Culture (06/27/25 08:26) Lactic Acid W/ Reflex Order (06/27/25 08:26) Metronidazole 500mg/100ml (Flagyl 500mg/ (06/27/25 08:30) Sodium Chloride 0.9% (06/27/25 08:30) Sodium Chloride 0.9% (06/27/25 08:30) Ct Ab Pel Wo Con-No Oral Or Iv (06/27/25 08:29) Beta-Hydroxybutyrate (06/27/25 08:35) Abg W/ Co-Ox (06/27/25 08:35) Dextrose 10% (06/27/25 08:45) Basic Metabolic Panel (06/27/25 12:00) Basic Metabolic Panel (06/27/25 18:00) Basic Metabolic Panel (06/28/25 00:00) Basic Metabolic Panel (06/28/25 06:00) Basic Metabolic Panel (06/28/25 12:00) Basic Metabolic Panel (06/28/25 18:00) Glucose Blood (Accu-Chek Comfort Curve T (06/27/25 10:00) Agressive Insulin Ss (06/27/25 12:00) Dextrose 50% Syringe (06/27/25:15) Urine Ethanol (06/27/25 09:09) Etoh Withdrawal Assessment (06/27/25:09) Admit (06/27/25 09:09) Allergies (06/27/25:09) Code Status (06/27/25:) Ondansetron Hcl (Zofran) (06/27/25:15) Docusate Sodium Capsule (Colace Capsule) (06/27/25:15) Enoxaparin Sodium (Lovenox) (06/27/25 10:00) Complete Blood Count (06/28/25 04:00) Comprehensive Metabolic Panel (06/28/25 04:00) Condition: Fair (06/27/25:09) Clear Liq Diet (06/27/25 Breakfast) BRP (06/27/25:09) Morphine Sulfate Injection (06/27/25:15) Sequential Compression Device (06/27/25 ) Nitroglycerin Sublingual (Ntrostat Subli (06/27/25:15) Stat Ekg For Chest Pain (06/27/25:) Notify Of Changes From Base (06/27/25:) Sweat Band Separator For 24 Hours (06/27/25 09:09) Emergency Dysrhythmia Protocol (06/27/25:09) Rhythm Strips Once Every Shift (06/27/25:09) Oxygen By Nasal Cannula (06/27/25:09) Zosyn Extended Infusion (06/27/25 12:00) Zosyn Extended Infusion (06/27/25:15) D5 Ns W Potassium 20meq (06/27/25:15) Cab Driver (06/27/25:09) Daily Weight (06/27/25:) Vs Q1hr And Prn (06/27/25:09) Oxygen Per Standardized Proced (06/27/25:) Record Ekg (06/27/25:) Vital Signs Date Time Temp Pulse Resp B/P (MAP) Pulse Ox O2 Delivery O2 Flow Rate FiO2 06/27/25 07:26 97.3 96 18 129/90 98 97.3 Laboratory Tests Test 06/27/25 07:52 06/27/25 08:40 White Blood Count 34.8 10^3/uL (4.4-10.8) *H Lactic Acid Level Pending Medications Medications Dose Ordered Sig/Humphrey Route Start Time Stop Time Status Last Admin Dose Admin Dextrose 50 ml ONCE ONCE IV 06/27/25 08:45 06/27/25 08:46 DC 06/27/25 08:45 50 ML Sodium Chloride 1,000 ml @ 1,000 mls/hr Q1H ONCE IV 06/27/25 08:30 06/27/25 09:29 06/27/25 09:05 1,000 MLS/HR Assessment/Plan Assessment/Plan Severe metabolic acidosis with lactic acidosis, leukocytosis, and hypoglycemia in the setting of acute alcohol use, dehydration, and possible sepsis. ASSESSMENT & PLAN acute severe sepsis Severe high anion gap metabolic acidosis with lactic acidosis severe acidemia Correct underlying cause (possible sepsis, dehydration) Admit to [facility] for close monitoring Continue IV fluid resuscitation with isotonic fluids Monitor serial lactate and VBG ordered blood cultures x2 ordered ua and culture fu results ordered vanco and zosyn for now acute severe Leukocytosis possible sepsis vs severe dehydration Obtain blood cultures 2 prior to antibiotics Empiric broad-spectrum IV antibiotics pending cultures vanco and zosyn for now Monitor vital signs, urine output, and mental status acute Hypoglycemia/possible alcohol-induced hypoglycemia glucose 45 now 205 IV dextrose bolus given, if continued downtrend will start D5-containing maintenance fluids for now cont ns 120ml/hr Frequent [id number] glucose checks for now q2h for now acute Alcohol use and binge drinking Monitor for alcohol withdrawal initiate CIWA protocol if indicated ordered banana bag current etoh level 6.8 Acute gastroenteritis vs. alcohol-induced gastritis Symptomatic management with antiemetics (ondansetron PRN) Clear liquid diet, advance as tolerated after nausea/vomiting improve Monitor stool output and hydration status ordered protonix for now Asthma stable Continue home inhaler regimen as needed Monitor for respiratory distress during admission acute Mild hyperchloremia cont iv hydration Low-level ethanol in blood enc abstinence CHRONIC PROBLEM LIST Asthma Alcohol use FEN / PPx Fluids: IV isotonic fluids, consider D5-containing solution for hypoglycemia Electrolytes: Monitor and replete K, Mg, and phosphate Nutrition: clr liquid, then advance diet DVT Prophylaxis: SCDs initially, GI Prophylaxis: PPI if ongoing vomiting and alcohol gastritis suspected Disposition: Admit to [facility] for management of severe metabolic acidosis, hypoglycemia, and possible sepsis. Monitor closely for hemodynamic instability and neurologic status changes. Plan discussed with: Patient My Orders Orders - IRVING PARKER DNP Procedure Category Date Status Time Basic Metabolic Panel LAB 06/27/25 Verified 12:00 Basic Metabolic Panel LAB 06/27/25 Verified 18:00 Basic Metabolic Panel LAB 06/28/25 Verified 00:00 Basic Metabolic Panel LAB 06/28/25 Verified 06:00 Basic Metabolic Panel LAB 06/28/25 Verified 12:00 Basic Metabolic Panel LAB 06/28/25 Verified 18:00 Glucose Blood PHA 06/27/25 Verified (Accu-Chek Comfort 10:00 Agressive Insulin Ss PHA 06/27/25 Verified 12:00 Dextrose 50% Syringe PHA 06/27/25 Verified 09:15 Urine Ethanol LAB 06/27/25 Verified 09:09 Etoh Withdrawal [facility] 06/27/25 Verified Assessment 09:09 Admit ADMIT 06/27/25 Verified 09:09 Allergies [facility] 06/27/25 Verified 09:09 Code Status CODE 06/27/25 Verified 09:09 Ondansetron Hcl PHA 06/27/25 Verified (Zofran) 09:15 Docusate Sodium PHA 06/27/25 Verified Capsule (Colace 09:15 Enoxaparin Sodium PHA 06/27/25 Verified (Lovenox) 10:00 Complete Blood Count LAB 06/28/25 Verified 04:00 Comprehensive LAB 06/28/25 Verified Metabolic Panel 04:00 Condition: Fair [facility]ANE 06/27/25 Verified 09:09 Clear Liq Diet DIET 06/27/25 Verified Breakfast BRP [facility] 06/27/25 Verified 09:09 Morphine Sulfate PHA 06/27/25 Verified Injection 09:15 Sequential [facility] 06/27/25 Verified Compression Device Nitroglycerin [facility] 06/27/25 Verified Sublingual (Ntrostat 09:15 Stat Ekg For Chest [facility] 06/27/25 Verified Pain 09:09 Notify Of Changes [facility] 06/27/25 Verified From Base 09:09 Sweat Band Separator For [facility] 06/27/25 Verified 24 Hours 09:09 Emergency Dysrhythmia [facility] 06/27/25 Verified Protocol 09:09 Rhythm Strips Once [facility] 06/27/25 Verified Every Shift 09:09 Oxygen By Nasal RT 06/27/25 Verified Cannula 09:09 Zosyn Extended [facility] 06/27/25 Verified Infusion 12:00 Zosyn Extended [facility] 06/27/25 Verified Infusion 09:15 D5 Ns W Potassium [facility] 06/27/25 Verified 20meq 09:15 Cab Driver [facility] 06/27/25 Verified 09:09 Daily Weight [facility] 06/27/25 Verified 09:09 Vs Q1hr And Prn [facility] 06/27/25 Verified 09:09 Oxygen Per [facility] 06/27/25 Verified Standardized Proced 09:09 Record Ekg [facility] 06/27/25 Verified 09:09 Date of Service: Jun 27, 2025 Billing Provider: IRVING PARKER DNP Common Visit Codes: [id number] INP/OBS CARE (HIGH), [id number] CARE 30- 74 MIN (Total critical care time: Approximately 45 minutes This critical care time included obtaining a history; examining the patient; pulse oximetry; ordering and review of studies; arranging urgent treatment with development of a management plan; evaluation of patient's response to treatment; frequent reassessment; and, discussions with other providers.) IRVING PARKER DNP Jun 27, 2025 09:17
[2025-06-27] MEDS: cefTRIAXone 1GM/50ML D5W 50 ML IV ONE (09:18)
[2025-06-27] MEDS: MORPHINE SULFATE 4 MG/ML SYR/VIAL IV ONE (09:26)
[2025-06-27 09:32] LABS: Lactic Acid w/Reflex 10.4 mmol/L (0.4-2.0)
[2025-06-27] MEDS: ONDANSETRON HCL 4 MG/2 ML VIAL IV ONE (09:51)
--- NOTE | 2025-06-27 10:04 | DVH ---
CT CT AB PEL WO CON-NO ORAL OR IV INDICATION: appy EXAM DATE: 06/27/2025 08:48 AM COMPARISON: None RADIATION DOSE: CTDIvol: 4.99 mGy, DLP: 268.84 mGy*cm PROCEDURE: Helical CT images were obtained of the abdomen and pelvis without IV contrast Sagittal and coronal reconstructions are provided. ORAL CONTRAST: None. ADDITIONAL IMAGES / REFORMATS: None All C T scans at this medical facility are performed using dose modulation techniques as appropriate to a p erformed exam including the following: Automated exposure control was utilized; adjustment of the MA and/or KV according to patient size; and use of iterative reconstruction technique. FINDINGS: LUNG BASE: Normal. LIVER: Normal. GALLBLADDER AND BILIARY TREE: No calcified gallstones. Normal caliber wall. No intra- or extrahepatic biliary ductal dilation. PANCREAS: Normal. SPLEEN: Normal. BOWEL: Normal. Appendix is only partially visualized but appears normal. ADRENALS: Normal. KIDNEYS AND URETER: Normal. BLADDER: Normal. REPRODUCTIVE ORGANS: Normal. LYMPH NODES:No lymphadenopathy. PERITONEUM: No ascites or free air. No other fluid collection. VESSELS: Normal. RETROPERITONEUM: Normal. ABDOMINAL WALL: Normal. BONES: Normal. IMPRESSION: No acute intraabdominal abnormality. Appendix is only partially visualized but appears normal.
[2025-06-27] MEDS: ACCU-CHEK COMFORT CURVE STRIP VI SCH (10:18)
[2025-06-27] MEDS: SODIUM CHLORIDE 0.9% 2,000 ML IV ONE (10:40)
[2025-06-27] MEDS: PIPERACILLIN-TAZOB 3.375GM 100 ML IV ONE (10:41)
[2025-06-27] MEDS: ENOXAPARIN SOD 40 MG/0.4 ML SYRINGE SC SCH (10:41)
[2025-06-27] MEDS ORDERED: VANCOMYCIN PER PHARMACY 0 MG IV SCH (10:45)
[2025-06-27 11:06] LABS: Base Excess -13.1 mmol/L (-2.0-3.0)
[2025-06-27] MEDS: VANCOMYCIN 1GM/250ML KIT 250 ML IV ONE (11:13)
[2025-06-27] MEDS: InsuLIN REG 1unit/0.01ml Soln (100units/ml) SC SCH (12:00)
[2025-06-27 12:47] LABS: Lactic Acid w/Reflex 3.0 mmol/L (0.4-2.0)
[2025-06-27] MEDS: ONDANSETRON HCL 4 MG/2 ML VIAL IV PRN (12:55)
[2025-06-27 13:22] LABS: Amphetamine Screen, Urine Neg (NEGATIVE); Barbiturate Scree,Urine Neg (NEGATIVE); Benzodiazephine Screen, Urine Neg (NEGATIVE); Cannabinoid Screen, Urine Pos (NEGATIVE); Cocaine Screen, Urine Pos (NEGATIVE); Opiate Scree,Urine Neg (NEGATIVE); Phencyclidine Screen, Urine Neg (NEGATIVE)
[2025-06-27 13:35] LABS: Urine Protein, UAD Trace (Negative)
[2025-06-27 14:10] LABS: Potassium 4.1 mmol/L (3.5-5.1); Sodium 142 mmol/L (136-145)
[2025-06-27 14:11] LABS: Anion Gap 12 (5-15)
[2025-06-27 14:16] LABS: Blood Urea Nitrogen 10 mg/dL (9-23); Calcium 7.5 mg/dL (8.7-10.4); Carbon Dioxide 16 mmol/L (20-31); Chloride 114 mmol/L (98-107); Glucose 137 mg/dL (74-106)
[2025-06-27 14:21] LABS: BUN/Creatinine Ratio 12.2 (10.0-20.0)
[2025-06-27] MEDS: PIPERACILLIN-TAZOB 3.375GM 100 ML IV SCH (15:04)
[2025-06-27] MEDS ORDERED: VANCOMYCIN 750MG KIT 100 ML IV SCH (16:30)
[2025-06-27 18:19] LABS: Potassium 3.9 mmol/L (3.5-5.1); Sodium 142 mmol/L (136-145)
[2025-06-27 18:20] LABS: Anion Gap 12 (5-15)
[2025-06-27 18:25] LABS: BUN/Creatinine Ratio 9.6 (10.0-20.0); Glucose 79 mg/dL (74-106)
[2025-06-27 18:30] LABS: Blood Urea Nitrogen 8 mg/dL (9-23); Calcium 8.0 mg/dL (8.7-10.4); Carbon Dioxide 17 mmol/L (20-31); Chloride 113 mmol/L (98-107)
[2025-06-27 19:28] VITALS: PULSE 109; RESP 20; O2SAT 97
[2025-06-27] MEDS: VANCOMYCIN 750MG KIT 100 ML IV SCH (20:32)
[2025-06-27] MEDS: ACETAMINOPHEN 325 MG TAB PO ONE (22:09)
[2025-06-28] VITALS (21 sets, daily range): BP systolic 95–124; BP diastolic 54–73; PULSE 72–101; RESP 11–28; TEMP 98.3–99.3; O2SAT 95–99
[2025-06-28 05:55] LABS: Hematocrit 38.3 % (41.0-53.0); Hemoglobin 13.4 g/dL (13.5-17.5); Mean Corpuscular Hemoglobin 30.9 pg (28.0-32.0); Mean Corpuscular Volume 88.1 fL (80.0-100.0); Nucleated Red Blood Cells % 0.1 %
[2025-06-28 06:23] LABS: Alanine Aminotransferase 26 U/L (7-40); Albumin 4.2 g/dL (3.2-4.8); Alkaline Phosphatase 63 U/L (46-116); Anion Gap 13 (5-15); BUN/Creatinine Ratio 8.6 (10.0-20.0); Calcium 8.9 mg/dL (8.7-10.4); Carbon Dioxide 21 mmol/L (20-31); Glucose 86 mg/dL (74-106); Sodium 144 mmol/L (136-145); Total Protein 6.1 g/dL (5.7-8.2)
[2025-06-28 06:24] LABS: Bilirubin, Total 1.2 mg/dL (0.2-1.0)
[2025-06-28 06:33] LABS: Blood Urea Nitrogen 7 mg/dL (9-23); Chloride 110 mmol/L (98-107); Potassium 3.4 mmol/L (3.5-5.1)
[2025-06-28] MEDS: SOD CHL 0.45% WITH 20MEQ KCL 1,000 ML IV SCH (12:45)
[2025-06-28 12:55] LABS: Anion Gap 10 (5-15); Carbon Dioxide 23 mmol/L (20-31); Potassium 3.5 mmol/L (3.5-5.1); Sodium 142 mmol/L (136-145)
[2025-06-28 13:01] LABS: BUN/Creatinine Ratio 11.1 (10.0-20.0); Blood Urea Nitrogen 8 mg/dL (9-23); Calcium 8.5 mg/dL (8.7-10.4); Chloride 109 mmol/L (98-107); Glucose 81 mg/dL (74-106)
[2025-06-28] MEDS: POTASSIUM CHL 20 Meq TABLET PO ONE (13:49)
--- NOTE | 2025-06-28 14:49 | DVHPN2 ---
Subjective Patient denies any symptoms. Reviewed: Care Plan, H&P, Labs Changes from previous H/P or p: No Changes Eyes: No Pain, No Vision change, No Conjunctivae inflammation, No Eyelid inflammation, No Other, No Redness ENT: No Ear pain, No Ear discharge, No Nose pain, No Nose discharge, No Nose congestion, No Mouth pain, No Mouth swelling, No Throat pain, No Throat swelling, No Other Cardiovascular: No Chest Pain, No Palpitations, No Orthopnea, No Paroxysmal Noc. Dyspnea, No Edema, No Lt Headedness, No Other Respiratory: No Cough, No Dry, No Shortness of breath, No SOB with excertion, No Wheezing, No Hemoptysis, No Pleuritic Pain, No Sputum, No Other Gastrointestinal: Nausea, Vomiting, Abdominal Pain, Diarrhea Genitourinary: No Dysuria, No Frequency, No Incontinence, No Hematuria, No Retention, No Other Musculoskeletal: No other, No neck pain, No shoulder pain, No arm pain, No back pain, No hand pain, No leg pain, No foot pain Skin: No Rash, No Lesions, No Jaundice, No Bruising, No Other Objective Vitals Vital Signs Date Time Temp Pulse Resp B/P (MAP) Pulse Ox O2 Delivery O2 Flow Rate FiO2 06/28/25 12:00 80 06/28/25 08:00 23 Room Air* 0 21 06/28/25 08:00 98.8 99/61 (74) 99 98.8 Intake/Output Intake and Output 06/28/25 07:00 Intake Total 4425 ml Output Total 1075 ml Balance 3350 ml Intake IV Total 4425 ml Output Urine Total 1075 ml # Bowel Movements 1 General Appearance: Alert, Oriented X3, Cooperative, No acute distress HEENT: Atraumatic, PERRLA Cardiovascular: Normal S1, Normal S2 Abdomen: Normal bowel sounds, Soft, No tenderness Musculoskeletal: Normal sensory function, Normal motor function Skin: Dry, Intact Psych/Mental Status: Mental status NL, Mood NL Medications Current Medications Medications Dose Ordered Sig/Humphrey Route Start Time Stop Time Status Last Admin Dose Admin Ondansetron HCl 4 mg Q4HP PRN IV 06/27/25 09:15 06/27/25 12:55 4 MG Docusate Sodium 100 mg BIDPRN PRN PO 06/27/25 09:15 Enoxaparin Sodium 40 mg DAILY SC 06/27/25 10:00 06/28/25 10:50 40 MG Morphine Sulfate 2 mg Q4HPRN PRN IV 06/27/25 09:15 Nitroglycerin 0.4 mg Q5MINP PRN SL 06/27/25 09:15 Piperacillin Sod/ Tazobactam Sod 100 ml @ 25 mls/hr Q8HR IV 06/27/25 14:00 06/28/25 06:10 25 MLS/HR Potassium Chloride/Sodium Chloride 1,000 ml @ 75 mls/hr [id number] IV 06/28/25 12:45 06/28/25 12:45 75 MLS/HR Laboratory Results Laboratory Tests 06/28/25 05:31 06/28/25 12:07 Chemistry Test 06/27/25 18:01 06/28/25 05:31 06/28/25 12:07 Calcium Level 8.0 mg/dL (8.7-10.4) L 8.9 mg/dL (8.7-10.4) 8.5 mg/dL (8.7-10.4) L Albumin 4.2 g/dL (3.2-4.8) Total Protein 6.1 g/dL (5.7-8.2) LFT Test 06/28/25 05:31 Alanine Aminotransferase (ALT) 26 U/L (7-40) Alkaline Phosphatase 63 U/L (46-116) Aspartate Amino Transferase (AST) 29 U/L (13-40) Total Bilirubin 1.2 mg/dL (0.2-1.0) H Urinalysis Test 06/27/25 12:00 Urine Color Light-yellow (Yellow) Urine Clarity Clear (Clear) Urine pH 5.0 (5.0-9.0) Urine Specific [place] 1.018 (1.001-1.035) Urine Protein Trace (Negative) H Urine Ketones 3+ (Negative) H Urine Blood Trace /uL (Negative) H Urine Nitrite Negative (Negative) Urine Bilirubin Negative (Negative) Urine Urobilinogen Normal mg/dL (Negative) Urine Leukocyte Esterase Negative /uL (Negative) Urine Glucose 4+ mg/dL (Normal) H Microbiology Microbiology Date/Time Source Procedure Growth Status 06/27/25 08:40 Blood Blood Culture - Preliminary NO GROWTH AFTER 24 HOURS OF INCUBATION. Resulted Labs and/or images reviewed: Labs reviewed by me, Image(s) reviewed by me Assessment/Plan Assessment/Plan Impression: -leukocytosis, rule out sepsis -polysubstance abuse -toxic metabolic encephalopathy -cachexia Plan: -continue IV hydration -potassium replacement -continue empiric antibiotic therapy -transfer to Medical/Surgical unit -repeat labs in a.m. Total time spent with patient discussing and formulating plan of care: 35 minutes. This medical document was created using an electronic medical record system with interspire[employer] dictation system. Although this document has been carefully reviewed, there may still be some phonetic and typographical errors. These areas are purely typographical due to imperfections of the software programs, and do not reflect any compromise in the patient's medical care. Plan discussed with: Patient, Other (RN) My Orders Orders - SAMI LEWIS NP Procedure Category Date Status Time Sod Chl 0.45% With PHA 06/28/25 In Process 20meq Kcl 12:45 Transfer Orders XFER 06/28/25 Verified 14:38 Full Liq Diet DIET 06/28/25 Verified Dinner Date of Service: Jun 28, 2025 Billing Provider: SAMI LEWIS NP Common Visit Codes: [id number] INP/OBS CARE(HIGH) SAMI LEWIS NP Jun 28, 2025 14:49
[2025-06-28] MEDS: PIPERACILLIN-TAZOB 3.375GM 100 ML IV ONE (16:13)
[2025-06-29] VITALS (14 sets, daily range): BP systolic 93–128; BP diastolic 52–74; PULSE 56–106; RESP 10–21; TEMP 98.2–99.1; O2SAT 95–99
[2025-06-29 06:24] LABS: Hematocrit 39.8 % (41.0-53.0); Hemoglobin 14.0 g/dL (13.5-17.5); Mean Corpuscular Hemoglobin 30.8 pg (28.0-32.0); Mean Corpuscular Volume 87.5 fL (80.0-100.0); Nucleated Red Blood Cells % 0.1 %
[2025-06-29 06:49] LABS: Alanine Aminotransferase 27 U/L (7-40); Alkaline Phosphatase 61 U/L (46-116); Anion Gap 12 (5-15); Calcium 8.7 mg/dL (8.7-10.4); Carbon Dioxide 25 mmol/L (20-31); Chloride 104 mmol/L (98-107); Glucose 76 mg/dL (74-106); Sodium 141 mmol/L (136-145)
[2025-06-29 06:50] LABS: BUN/Creatinine Ratio 8.5 (10.0-20.0); Total Protein 6.1 g/dL (5.7-8.2)
[2025-06-29 06:51] LABS: Albumin 4.1 g/dL (3.2-4.8)
[2025-06-29 06:52] LABS: Bilirubin, Total 0.6 mg/dL (0.2-1.0); Blood Urea Nitrogen 6 mg/dL (9-23); Potassium 3.4 mmol/L (3.5-5.1)
[2025-06-29] MEDS: cefTRIAXone 1GM/50ML D5W 50 ML IV SCH (09:06)
--- NOTE | 2025-06-29 10:13 | DVHDS2 ---
Discharge Summary Date of Admission Jun 27, 2025 at 09:09 Date of Discharge: Jun 29, 2025 Admitting Diagnosis Acute severe sepsis Labs/Diagnostic Data: Laboratory Results Test 06/29/25 05:31 06/28/25 07:46 06/27/25 13:25 06/27/25 12:54 White Blood Count 7.7 10^3/uL (4.4-10.8) Red Blood Count 4.54 10^6/uL (4.5-5.90) Hemoglobin 14.0 g/dL (13.5-17.5) Hematocrit 39.8 % (41.0-53.0) Mean Corpuscular Volume 87.5 fL (80.0-100.0) Mean Corpuscular Hemoglobin 30.8 pg (28.0-32.0) Mean Corpuscular Hemoglobin Concent 35.2 g/dL (32.0-36.0) Red Cell Distribution Width 12.8 % (11.8-14.3) Platelet Count 235 10^3/uL (140-450) Mean Platelet Volume 8.5 fL (6.9-10.8) Neutrophils (%) (Auto) 66.7 % (37.0-80.0) Lymphocytes (%) (Auto) 21.6 % (10.0-50.0) Monocytes (%) (Auto) 9.6 % (0.0-12.0) Eosinophils (%) (Auto) 1.1 % (0.0-7.0) Basophils (%) (Auto) 1.0 % (0.0-2.0) Neutrophils # (Auto) 5.2 10 ^3/uL (1.6-8.6) Lymphocytes # (Auto) 1.7 10 ^3/uL (0.4-5.4) Monocytes # (Auto) 0.7 10 ^3/uL (0-1.3) Eosinophils # (Auto) 0.1 10 ^3/uL (0-0.8) Basophils # (Auto) 0.1 10 ^3/uL (0-0.2) Nucleated Red Blood Cells 0.1 % Sodium Level 141 mmol/L (136-145) Potassium Level 3.4 mmol/L (3.5-5.1) Chloride Level 104 mmol/L (98-107) Carbon Dioxide Level 25 mmol/L (20-31) Anion Gap 12 (5-15) Blood Urea Nitrogen 6 mg/dL (9-23) Creatinine 0.71 mg/dL (0.700-1.30) Glomerular Filtration Rate Calc 132 mL/min (>90) BUN/Creatinine Ratio 8.5 (10.0-20.0) Serum Glucose 76 mg/dL (74-106) Calcium Level 8.7 mg/dL (8.7-10.4) Total Bilirubin 0.6 mg/dL (0.2-1.0) Aspartate Amino Transferase (AST) 27 U/L (13-40) Alanine Aminotransferase (ALT) 27 U/L (7-40) Alkaline Phosphatase 61 U/L (46-116) Total Protein 6.1 g/dL (5.7-8.2) Albumin 4.1 g/dL (3.2-4.8) POC Glucose 89 mg/dl (70-106) Blood Gas Specimen Type Venous Blood Gas Sample Site Vbg - n/a Blood Gas Patient Temperature 37.0 Arterial Blood Date Drawn [id number] Mike Test N/a Venous Blood pH 7.273 (7.320-7.430) Venous Blood pCO2 at Patient Temp 30.3 mmHg (38.0-54.0) Venous Blood pO2 at Patient Temp 51.5 mmHg (23.0-48.0) Venous Blood HCO3 13.7 mmol/L (22.0-29.0) Venous Blood Base Excess -11.7 mmol/L (-2.0-3.0) Blood Gas Modality Room air FiO2 % 21.0 Urine Opiates Screen Neg (NEGATIVE) Urine Fentanyl Screen Neg (NEGATIVE) Urine Barbiturates Screen Neg (NEGATIVE) Urine Phencyclidine Screen Neg (NEGATIVE) Urine Amphetamines Screen Neg (NEGATIVE) Urine Benzodiazepines Screen Neg (NEGATIVE) Urine Cocaine Screen Pos (NEGATIVE) Urine Cannabinoids Screen Pos (NEGATIVE) Test 06/27/25 12:20 06/27/25 12:00 06/27/25 11:00 06/27/25 08:48 Lactic Acid Level 3.0 mmol/L (0.4-2.0) Urine Color Light-yellow (Yellow) Urine Clarity Clear (Clear) Urine pH 5.0 (5.0-9.0) Urine Specific [place] 1.018 (1.001-1.035) Urine Protein Trace (Negative) Urine Ketones 3+ (Negative) Urine Blood Trace /uL (Negative) Urine Nitrite Negative (Negative) Urine Bilirubin Negative (Negative) Urine Urobilinogen Normal mg/dL (Negative) Urine Leukocyte Esterase Negative /uL (Negative) Urine Glucose 4+ mg/dL (Normal) Arterial Blood pH 7.318 (7.350-7.450) Arterial Blood Partial Pressure CO2 22.0 mmHg (35.0-48.0) Arterial Blood Partial Pressure O2 109.3 mmHg (83.0-108.0) Arterial Blood HCO3 11.0 mmol/L (21.0-28.0) Arterial Blood Oxygen Saturation 97.1 % (94.0-98.0) Arterial Blood Base Excess -13.1 mmol/L (-2.0-3.0) Arterial Blood Oxyhemoglobin 96.1 % (94.0-98.0) Arterial Blood Carboxyhemoglobin 0.3 % (0.5-1.5) Arterial Blood Methemoglobin 0.7 % (0.0-1.5) Blood Gas Total Hemoglobin 12.80 g/dL (13.5-17.5) Blood Gas Critical Value Read Back yes Blood Gas Notified Whom Blood Gas Notified Time [id number] Blood Gas Notified By technology education instructor ulises Gonzales 06/27/25 08:40 06/27/25 07:52 Beta-Hydroxybutyric Acid 1.776 mmol/L (< 0.4) Plasma/Serum Blood Alcohol 5.9 mg/dL (<10) Differential Total Cells Counted 100.0 (100) Neutrophils % (Manual) 87 (37.0-80.0) Band Neutrophils % (Manual) 0 Lymphocytes % (Manual) 9 (10.0-50.0) Monocytes % (Manual) 4 (0-12) Eosinophils % (Manual) 0 (0-7) Basophils % (Manual) 0 (0.0-2.0) Metamyelocytes % (manual) 0 Myelocytes % (Manual) 0 Promyelocytes % (Manual) 0 Blast Cells % (Manual) 0 Reactive Lymphocytes 0 Platelet Estimate Adequate Red Blood Cell Morphology Normal Other Laboratory Tests 06/29/25 05:31 Brief Hx & Hospital Course: History of Present Illness 25-year-old male with a history of asthma and no prior surgeries presented with persistent vomiting and diarrhea following heavy alcohol consumption. He reports that he was out partying yesterday, drinking tequila until approximately 1:00 AM. This morning, upon awakening, he experienced intractable vomiting without blood and was unable to tolerate oral intake despite attempts with Gatorade and Powerade. He also reports diffuse abdominal pain and diarrhea. He denies hematemesis, hematochezia, melena, chest pain, or shortness of breath. He smoked marijuana two days prior to presentation. On arrival to the ED, vital signs showed tachycardia and metabolic derangements. Labs revealed WBC 34.8, chloride 109, CO? <10, anion gap 23, glucose decreased to 45, lactate elevated at 10.48, pH 7.183, bicarbonate 9.1, base deficit -17.3, hemoglobin 20.1, ethanol level 7.8. Renal function was normal. Findings are consistent with severe metabolic acidosis, lactic acidosis, leukocytosis, hypoglycemia, and possible sepsis. The patient received initial resuscitation in the ED. Given the severity of metabolic derangements and concern for sepsis, he will be admitted to [facility] further workup and management. Course of Hospitalization: Patient found to have positive toxicology screen with cocaine, cannabinoids, as well as the patient reporting having ETOH use recently. The patient was given empiric antibiotic therapy and IV hydration. Blood cultures negative. Patient's acidosis improved. Patient denies any fevers , chills, cough, nausea/vomiting, diarrhea, chest pain, abdominal pain, shortness of breaths once he became more alert. He was given lifestyle modification education with respect to illicit drug use as well as alcohol use. Patient verbalized understanding. He denies any suicidal ideation or thoughts of harming himself. Patient will be discharged home, instructed follow up with the discharge Clinic in one week. All questions answered. Physical examination General: Alert and Oriented x3. No acute distress. Well-nourished. Eyes: EOMI. Anicteric. HENT: Moist mucous membranes. Lungs: Clear to auscultation bilaterally. No accessory muscle use. Cardiovascular: Regular rate and rhythm. No murmur. No JVD. Abdomen: Soft, non-tender and non-distended. No palpable masses. Extremities: No edema. Non-tender. Skin: No rashes or lesions. Warm. Neurologic: No focal neurological deficits. CN II-XII grossly intact, but not individually tested. Psychiatric: Cooperative. Appropriate mood and affect. Total time spent with patient discussing and formulating plan of care: 35 minutes. This medical document was created using an electronic medical record system with [employer] dictation system. Although this document has been carefully reviewed, there may still be some phonetic and typographical errors. These areas are purely typographical due to imperfections of the software programs, and do not reflect any compromise in the patient's medical care. Condition at Discharge: Fair Final Diagnosis/Problems List Toxic metabolic encephalopathy with SIRS Secondary diagnosis: -leukocytosis, rule out sepsis -polysubstance abuse -toxic metabolic encephalopathy -cachexia Discharge Disposition: Home Discharge Instruct/Medications Diet: Regular Activity: No Restrictions, As Tolerated Follow Up/Referral: Discharge Clinic in one week Scheduled Azithromycin (Zithromax Tablet), 250 MG PO DAILY Lidocaine HCl (Mouth-Throat) (Lidocaine HCl Viscous), 5 ML MT TID Scheduled PRN Ondansetron Odt 4MG Tab (Zofran Po), 4 MG PO Q8HP PRN 36 Discharge Statement: "Patient was advised to return to the ER or call 911 if any headaches, dizziness, shortness of breath, chest pain, abdominal pain, bleeding, fevers, or worsening of medical condition. Patient was counseled about treatment plan, medications, possible side effects, patientverbalized understanding. All questions were answered to the best of my ability. This discharge took greater then 30 minutes in planning, reviewing documentation, counseling the patient, and discussing with other team members." ASSESSMENT ASSESSMENT Assessment Toxic metabolic encephalopathy with SIRS Date of Service: Jun 29, 2025 Billing Provider: SAMI LEWIS NP Common Visit Codes: 00513-NOC/OBS DISCH DAY >30min SAMI LEWIS NP Jun 29, 2025 10:13
[2025-06-29] MEDS: POTASSIUM EFFERVESENT TAB 25 MEQ PO ONE (12:41)
== END 2025-06-29 13:00 | disposition home or self-care (01) | DRG 871 ==
LOC: ER 07:24 → OVERFLOW 09:09 → DOU IN ADS 06-28 05:55 → OVERFLOW 06-29 10:48 → DOU 06-29 10:53 → OVERFLOW 06-29 11:23 → DOU 06-29 11:33
PROVIDERS: ADMIT Nurse Practitioner Acute Care; ATTEND Nurse Practitioner Acute Care
DX: A41.9 Sepsis, unspecified organism (principal); G92.8 Other toxic encephalopathy; E87.20 Acidosis, unspecified; R64 Cachexia; Z68.1 Body mass index [BMI] 19.9 or less, adult; J45.909 Unspecified asthma, uncomplicated; F19.10 Other psychoactive substance abuse, uncomplicated; E86.0 Dehydration; E87.8 Other disorders of electrolyte and fluid balance, not elsewhere classified; K52.9 Noninfective gastroenteritis and colitis, unspecified; E16.2 Hypoglycemia, unspecified; R65.20 Severe sepsis without septic shock; F12.90 Cannabis use, unspecified, uncomplicated; F10.90 Alcohol use, unspecified, uncomplicated
CPT/HCPCS: 36415; 36600; 74176; 80048; 80053; 80307; 80320; 81003; 82010; 82805; 82962; 83605; 85007; 85025; 85027; 87040; 87081; 96365; 96375; G0378; J2405; J2543; J3490